=== PATIENT | female | born 1990 | race Caucasian/White ===

== ENCOUNTER 2024-01-19 04:16 | Emergency (ER) | payer OTHER ==
[~2024-01-19] VITALS: Ht 167.6 cm; Wt 69.0 kg
[2024-01-19 04:18] VITALS: O2SAT 98
[2024-01-19 05:39] LABS: BASOPHILS % 0.9 % (0.0-2.0); EOSINOPHILS % 0.8 % (0.0-5.0); HEMATOCRIT. 27.3 % (36.0-48.0); HEMOGLOBIN. 8.5 g/dL (12.0-16.0); LYMPHOCYTES % 31.3 % (20.0-50.0); MEAN CORPUSCULAR HEMOGLOBIN 21.4 pg (28.0-32.0); MEAN CORPUSCULAR HGB CONC 31.2 g/dL (31.0-37.0); MEAN CORPUSCULAR VOLUME 68.8 fL (81.0-99.0); MEAN PLATELET VOLUME 7.3 fl (7.4-10.4); MONOCYTES % 9.8 % (2.0-8.0); NEUTROPHILS % 57.2 % (40.0-76.0); PLATELET 220 x1000/uL (130-400); RED BLOOD CELL COUNT 3.97 mill/uL (4.2-5.4); RED CELL DISTRIBUTION WIDTH 20.5 % (11.6-14.6); WHITE BLOOD COUNT 3.8 x1000/uL (4.5-11.0)
[2024-01-19 05:40] LABS: ADD RBC MORPHOLOGY YES; DIFFERENTIAL COMMENT 1
[2024-01-19 05:42] LABS: CHLORIDE 108 mEq/L (98-107); SODIUM 142 mEq/L (136-145)
[2024-01-19 05:43] LABS: CARBON DIOXIDE 19 mEq/L (21-32)
[2024-01-19 05:44] LABS: CALCIUM 9.8 mg/dL (8.7-10.4)
[2024-01-19 05:48] LABS: CREATININE 1.2 mg/dL (0.6-1.0); GLUCOSE 160 mg/dL (70-105); UREA NITROGEN BLOOD 11 mg/dL (9-23)
[2024-01-19] MEDS: SODIUM CHLORIDE 0.9% 1,000 ML IV ONE (06:01)
[2024-01-19] MEDS: LORAZEPAM 2MG/ML INJ IM STA (06:01)
[2024-01-19] MEDS: DIPHENHYDRAMINE 50MG/ML VIAL IM STA (06:01)
[2024-01-19] MEDS: HALOPERIDOL LACTATE 5MG/ML VIAL IM STA (06:01)
[2024-01-19 06:04] LABS: ETHANOL BLOOD < 10 mg/dL (<10)
[2024-01-19 06:09] LABS: POTASSIUM 2.6 mEq/L (3.5-5.1)
[2024-01-19 06:13] LABS: PLATELET ESTIMATE NORMAL
[2024-01-19 06:14] LABS: GIANT PLATELETS FEW; OVALOCYTES 1+; TEAR DROP CELLS 1+
[2024-01-19 06:19] LABS: ACETAMINOPHEN < 2 ug/mL (10-30)
[2024-01-19 08:13] LABS: *AMPHETAMINES SCREEN URINE PRESUMPTIVE POSITIVE (NEGATIVE); *BENZODIAZEPINES SCREEN URINE NEGATIVE (NEGATIVE); *COCAINE SCREEN URINE NEGATIVE (NEGATIVE); METHADONE URINE SCREEN NEGATIVE (NEGATIVE)
[2024-01-19 08:14] LABS: CANNABINOID URINE SCREEN NEGATIVE (NEGATIVE); ECSTASY MDMA SCREEN URINE NEGATIVE (NEGATIVE); OPIATES URINE SCREEN NEGATIVE (NEGATIVE); PHENCYCLIDINE URINE SCREEN NEGATIVE (NEGATIVE)
[2024-01-19 08:18] LABS: *BARBITURATES SCREEN URINE NEGATIVE (NEGATIVE)
[2024-01-19] MEDS ORDERED: POTASSIUM CHLORIDE 20MEQ TABLET SR PO ONE (09:30)
[2024-01-19] MEDS: POTASSIUM CHLORIDE 20MEQ TABLET SR PO NR (16:26)
[2024-01-19 23:11] LABS: HCG SCREEN NEGATIVE
[2024-01-20 11:50] VITALS: BP 118/62; PULSE 76; RESP 14; TEMP 97.9
== END 2024-01-20 12:48 | disposition home or self-care (01) ==
LOC: ER 04:16
DX: F23 Brief psychotic disorder (principal); F41.9 Anxiety disorder, unspecified; I50.9 Heart failure, unspecified; Z20.822 Contact with and (suspected) exposure to COVID-19
CPT/HCPCS: 80305; 80048; 81025; 80307; 80329; 80320; 84703; 85025; 36415; 96360; 96361; 96372; 99291; 87426; J1200; J1630; J2060; J7030; Z7610; G0480